=== PATIENT | male | born 1950 | race Hispanic/Latino ===

== ENCOUNTER → 2019-02-06 | Outpatient (CLI) | payer OTHER | END | disposition home or self-care (01) | LOC: SHCH 11:20 | PROVIDERS: ATTEND Internal Medicine Cardiovascular Disease | DX: I70.0 Atherosclerosis of aorta (principal); I71.4 Abdominal aortic aneurysm, without rupture | CPT/HCPCS: 93978 ==

== ENCOUNTER → 2019-03-19 | Outpatient (CLI) | payer OTHER ==
[2019-03-19 09:28] LABS: CREATININE 0.9 mg/dL (0.5-1.5)
== END | disposition home or self-care (01) ==
LOC: LAB 08:36
PROVIDERS: ATTEND Internal Medicine Cardiovascular Disease
DX: I71.4 Abdominal aortic aneurysm, without rupture (principal)
CPT/HCPCS: 36415; 82565; 84520

== ENCOUNTER → 2019-03-20 | Outpatient (CLI) | payer OTHER ==
[~2019-03-20] MED LIST: IOHEXOL 350 MG/ML 100ML INFUS..BTL IV ONE
== END | disposition home or self-care (01) ==
LOC: RAH 07:43
PROVIDERS: ATTEND Internal Medicine Cardiovascular Disease
DX: I70.0 Atherosclerosis of aorta (principal); N40.0 Benign prostatic hyperplasia without lower urinary tract symptoms; Z94.4 Liver transplant status; Z90.49 Acquired absence of other specified parts of digestive tract
CPT/HCPCS: 74174; Q9967

== ENCOUNTER → 2021-02-14 | Outpatient (CLI) | payer MEDICARE | END | disposition home or self-care (01) | LOC: SLP 20:28 | PROVIDERS: ATTEND Internal Medicine | DX: G47.33 Obstructive sleep apnea (adult) (pediatric) (principal) | CPT/HCPCS: 95810 ==

== ENCOUNTER → 2021-02-16 | Outpatient (CLI) | payer MEDICARE | END | disposition home or self-care (01) | LOC: SLP 20:22 | PROVIDERS: ATTEND Internal Medicine | DX: G47.33 Obstructive sleep apnea (adult) (pediatric) (principal) | CPT/HCPCS: 95811 ==

== ENCOUNTER → 2021-05-20 | Outpatient (CLI) | payer MEDICARE ==
[2021-05-20 16:15] LABS: BASOPHILS % (AUTO) 0.2 % (0.0-5.0); EOSINOPHILS % (AUTO) 3.2 % (0.0-8.0); HEMATOCRIT 35.3 % (42-54); LYMPHOCYTES % (AUTO) 39.3 % (21.0-51.0); MEAN CORPUSCULAR HEMOGLOBIN 34.5 pg (27.0-33.0); MEAN CORPUSCULAR HGB CONC 33.4 g/dL (32.0-36.0); MEAN CORPUSCULAR VOLUME 103.2 fL (79-99); MONOCYTES % (AUTO) 5.2 % (3.0-13.0); NEUTROPHILS % (AUTO) 51.9 % (40.0-77.0); PLATELET COUNT (AUTO) 174 K/uL (130-400); RED BLOOD CELL COUNT(AUTO) 3.42 MIL/uL (4.50-6.20); RED CELL DISTRIBUTION WIDTH 15.4 % (11.0-15.5); WHITE BLOOD COUNT (AUTO) 4.4 K/uL (4.8-10.8)
[2021-05-20 16:37] LABS: ALBUMIN 3.6 g/dL (3.5-5.0); BILIRUBIN,TOTAL 0.7 mg/dL (0.2-1.0); CREATININE 1.2 mg/dL (0.5-1.5); POTASSIUM 3.9 mmol/L (3.5-5.1)
== END | disposition home or self-care (01) ==
LOC: RAH 14:10
PROVIDERS: ATTEND Surgery Surgical Oncology
DX: Z01.818 Encounter for other preprocedural examination (principal); C49.A3 Gastrointestinal stromal tumor of small intestine; I45.19 Other right bundle-branch block
CPT/HCPCS: 36415; 71046; 80053; 85025; 93005

== ENCOUNTER → 2021-06-18 | Outpatient (CLI) | payer MEDICARE ==
[2021-06-18 15:09] LABS: BASOPHILS % (AUTO) 0.3 % (0.0-5.0); EOSINOPHILS % (AUTO) 1.9 % (0.0-8.0); HEMATOCRIT 32.8 % (42-54); LYMPHOCYTES % (AUTO) 27.9 % (21.0-51.0); MEAN CORPUSCULAR HEMOGLOBIN 34.6 pg (27.0-33.0); MEAN CORPUSCULAR HGB CONC 32.9 g/dL (32.0-36.0); MEAN CORPUSCULAR VOLUME 105.1 fL (79-99); MONOCYTES % (AUTO) 3.1 % (3.0-13.0); NEUTROPHILS % (AUTO) 66.5 % (40.0-77.0); PLATELET COUNT (AUTO) 222 K/uL (130-400); RED BLOOD CELL COUNT(AUTO) 3.12 MIL/uL (4.50-6.20); RED CELL DISTRIBUTION WIDTH 14.7 % (11.0-15.5); WHITE BLOOD COUNT (AUTO) 3.2 K/uL (4.8-10.8)
[2021-06-18 16:36] LABS: BILIRUBIN,TOTAL 0.7 mg/dL (0.2-1.0); CREATININE 1.1 mg/dL (0.5-1.5); POTASSIUM 4.6 mmol/L (3.5-5.1); THYROID STIMULATING HORMONE 0.01 uIU/mL (0.36-3.74); TOTAL PROTEIN, SERUM 6.6 g/dL (6.0-8.3)
[2021-06-18 16:46] LABS: ALBUMIN 3.3 g/dL (3.5-5.0)
== END | disposition home or self-care (01) ==
LOC: LAB 14:08
PROVIDERS: ATTEND Internal Medicine
DX: C49.A3 Gastrointestinal stromal tumor of small intestine (principal); I10 Essential (primary) hypertension
CPT/HCPCS: 36415; 80053; 84439; 84443; 85025

== ENCOUNTER → 2022-01-05 | Outpatient (CLI) | payer MEDICARE | END | disposition home or self-care (01) | LOC: RAH 07:31 | PROVIDERS: ATTEND Physician Assistant Surgical | DX: Z48.23 Encounter for aftercare following liver transplant (principal); N28.1 Cyst of kidney, acquired; Z94.4 Liver transplant status; Z92.25 Personal history of immunosuppression therapy; Z79.899 Other long term (current) drug therapy; Z90.49 Acquired absence of other specified parts of digestive tract | CPT/HCPCS: 76700; 93975 ==

== ENCOUNTER → 2023-04-12 | Outpatient (CLI) | payer MEDICARE ==
[~2023-04-12] MED LIST changes: +GADOTERATE MEGLUMINE 10 MMOL/20 ML VIAL IV ONE; -IOHEXOL 350 MG/ML 100ML INFUS..BTL IV ONE
== END | disposition home or self-care (01) ==
LOC: RAH 14:33
PROVIDERS: ATTEND Family Medicine
DX: S46.011A Strain of muscle(s) and tendon(s) of the rotator cuff of right shoulder, initial encounter (principal); M25.811 Other specified joint disorders, right shoulder; W19.XXXA Unspecified fall, initial encounter; Y93.89 Activity, other specified; Y92.89 Other specified places as the place of occurrence of the external cause; Y99.8 Other external cause status
CPT/HCPCS: 73223; A9575

== ENCOUNTER 2024-05-22 17:38 | Emergency (ER) | payer MEDICARE ==
[~2024-05-22] VITALS: Ht 177.8 cm; Wt 102.1 kg
[~2024-05-22 17:38] MED LIST changes: +AMLO-257 PO; +APIX5TAB PO; +FINA5TAB41 PO; -GADOTERATE MEGLUMINE 10 MMOL/20 ML VIAL IV ONE; +LEVO25CA4 PO; +LISI5TAB21 PO; +PANT40TA54 PO; +SUNI50CA PO; +TAMS-1 PO; +TRACOLIMUS PO
[2024-05-22 18:10] LABS: BASOPHILS # (AUTO) 0.04 K/uL (0.00-0.20); BASOPHILS % (AUTO) 0.5 % (0.0-5.0); EOSINOPHILS # (AUTO) 0.41 K/uL (0.00-0.70); HEMATOCRIT 35.8 % (42-54); IMMATURE GRANULOCYTE ABSOLUTE 0.02 K/uL (0-1); LYMPHOCYTES # (AUTO) 4.3 K/uL (1.0-4.8); LYMPHOCYTES % (AUTO) 52.1 % (21.0-51.0); MEAN CORPUSCULAR HEMOGLOBIN 33.9 pg (27.0-33.0); MEAN CORPUSCULAR VOLUME 102.9 fL (79-99); MONOCYTES # (AUTO) 0.2 K/uL (0.1-1.0); MONOCYTES % (AUTO) 2.6 % (3.0-13.0); NEUTROPHILS # (AUTO) 3.2 K/uL (1.8-7.7); NEUTROPHILS % (AUTO) 39.6 % (40.0-77.0); PLATELET COUNT (AUTO) 203 K/uL (130-400); RED BLOOD CELL COUNT(AUTO) 3.48 MIL/uL (4.50-6.20); RED CELL DISTRIBUTION WIDTH 17.5 % (11.0-15.5); WHITE BLOOD COUNT (AUTO) 8.2 K/uL (4.8-10.8)
[2024-05-22 18:30] LABS: CREATININE 1.4 mg/dL (0.5-1.3); POTASSIUM 3.1 mmol/L (3.5-5.1)
[2024-05-22 18:39] LABS: ALBUMIN 3.3 g/dL (3.5-5.0); BILIRUBIN,TOTAL 0.7 mg/dL (0.2-1.0); TOTAL PROTEIN, SERUM 6.3 g/dL (6.0-8.3)
[2024-05-22 20:28] LABS: APPEARANCE,URINE CLEAR (CLEAR); BILIRUBIN,URINE NEGATIVE (NEGATIVE); COLOR,URINE YELLOW (YELLOW); GLUCOSE, URINE (UA) NEGATIVE (NEGATIVE); KETONES,URINE NEGATIVE (NEGATIVE); LEUKOCYTE ESTERASE ,URINE 250 Leu/uL (NEGATIVE); NITRATE,URINE NEGATIVE (NEGATIVE); OCCULT BLOOD,URINE NEGATIVE (NEGATIVE); PROTEIN,URINE 30 mg/dL (NEGATIVE); UROBILINOGEN,URINE 0.2 mg/dL (0.2-1.0)
[2024-05-22 20:37] LABS: ADD UA MICROSCOPIC YES
[2024-05-22] MEDS: ONDANSETRON 4MG INJ IVP ONE (20:37)
[2024-05-22] MEDS: POTASSIUM BICARB/CIT AC 25 MEQ TABLET.EFF PO ONE (20:38)
[2024-05-22] MEDS: 0.9%NACL 1000ML 1,000 ML IV ONE (20:38)
[2024-05-22 20:41] LABS: MUCUS,URINE RARE LPF (None Seen); SQUAMOUS EPITHELIAL CELL,UR RARE /HPF (0-2)
[2024-05-22] MEDS ORDERED: ONDA-243 PO (21:28)
[2024-05-22] MEDS ORDERED: FAMO-136 PO (21:28)
[2024-05-22] MEDS ORDERED: SULF1TAB42 PO (21:32)
[2024-05-22 21:52] VITALS: BP 152/76; PULSE 73; RESP 18; O2SAT 100
[2024-05-22] MEDS: CEFTRIAXONE 1G VIAL IVPB ONE (21:56)
== END 2024-05-22 22:40 | disposition home or self-care (01) ==
LOC: EDH 17:38
DX: E87.6 Hypokalemia (principal); R11.2 Nausea with vomiting, unspecified; K52.9 Noninfective gastroenteritis and colitis, unspecified; N39.0 Urinary tract infection, site not specified; R41.82 Altered mental status, unspecified; I10 Essential (primary) hypertension; Z79.899 Other long term (current) drug therapy; Z90.89 Acquired absence of other organs; Z98.890 Other specified postprocedural states
CPT/HCPCS: 99285; 96365; 70450; 71045; 96361; 96375; 84484; 80053; 83880; 83690; 85025; 87086; 81001; 36415; 93005; J7030; J0696; J2405

== ENCOUNTER → 2024-09-27 | Outpatient (CLI) | payer MEDICARE ==
[~2024-09-27] MED LIST changes: +FAMO-136 PO; +ONDA-243 PO; +SULF1TAB42 PO
--- NOTE | 2024-09-27 15:53 | HMCIMG ---
MR BRAIN WO CON HISTORY: Headaches COMPARISON: None TECHNIQUE: MRI of the brain was performed utilizing multiple pulse sequences in axial, coronal and sagittal planes. Patient was not given contrast through intravenous route. FINDINGS: The ventricles and extraventricular CSF spaces are dilated consistent with cerebral atrophy. Nonspecific white matter changes are seen. There is no midline shift, mass effect or herniation. No subacute hemorrhage is seen. No MR evidence of acute infarct is seen in the diffusion weighted images. Cerebellar tonsils are in normal position. No evidence of mucoperiosteal thickening is seen of the visualized paranasal sinuses. No MR evidence of a mass lesion is seen in this noncontrast study. There is minimal mastoid effusion bilaterally. IMPRESSION: 1. No MR evidence of acute infarct is seen in the diffusion weighted images. Atrophy with white matter changes.
== END | disposition home or self-care (01) ==
LOC: RAH 14:30
PROVIDERS: ATTEND Family Medicine
DX: G31.9 Degenerative disease of nervous system, unspecified (principal); R51.9 Headache, unspecified; R90.82 White matter disease, unspecified
CPT/HCPCS: 70551

== ENCOUNTER 2024-11-19 18:12 | Emergency (ER) | payer MEDICARE ==
[~2024-11-19] VITALS: Ht 177.8 cm; Wt 90.7 kg
--- NOTE | 2024-11-19 18:27 | ERN ---
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 Additionally he struck right temporoparietal area of his head and was days. No nausea vomiting no blood thinners no trauma alert criteria. He is ambulatory to the triage room, last tetanus shot is unknown. States he is not a diabetic. Patient is also complaining of cervical spine pain. C-collar placed patient neurovascular CMS intact to all extremities post placement. AFTER A LEFT TRIAGE ROOM PATIENT ADMITTED TO TRIAGE NURSE THAT HE WAS ON ELIQUIS, TRAUMA ALERT WAS ACTIVATED AND EXAMINED PATIENT. I WE WILL CONTINUE PATIENT'S CARE COLLABORATING WITH HER. Allergies: Coded Allergies: No Known Allergies (Unverified Allergy, Unknown, 04/11/24) Home Meds Active Scripts Sulfamethoxazole/Trimethoprim (Bactrim Ds Tablet) 800 Mg-160 Mg Tablet, 1 TAB PO BID for 7 Days, #14 TAB 0 Refills Prov:DEIDRA BOWMAN 05/22/24 Famotidine (Pepcid) 20 Mg Tablet, 20 MG PO DAILY for 7 Days, #7 TAB Prov:DEIDRA BOWMAN 05/22/24 Ondansetron (Ondansetron Odt) 4 Mg Tab.rapdis, 4 MG PO BID for 7 Days, #14 TAB Prov:DEIDRA BOWMAN 05/22/24 Apixaban (Eliquis) 5 Mg Tablet, 5 MG PO DAILY, #30 TAB Prov:SAMARA LOBO 04/16/24 Reported Medications [Tracolimus] No Conflict Check, 2 MG PO BID 04/12/24 Levothyroxine Sodium (Levothyroxine) 25 Mcg Capsule, 25 MCG PO DAILY, CAP 04/12/24 Pantoprazole Sodium (Pantoprazole Sodium) 40 Mg Tablet.dr 40 MG PO DAILYBKFST, TAB 04/12/24 Sunitinib Malate (Sunitinib Malate) 50 Mg Capsule, 50 MG PO DAILY, CAP takes it daily for one week and not the following week. starts on tuesdayu tuesday. 04/12/24 Lisinopril (Lisinopril) 5 Mg Tablet, 5 MG PO DAILYBKFST, TAB 04/12/24 Finasteride (Finasteride) 5 Mg Tablet, 5 MG PO DAILY, TAB 04/12/24 Tamsulosin HCl (Flomax) 0.4 Mg Cap.er.24h, 0.4 MG PO DAILY, CAPSULE. 04/12/24 Amlodipine Besylate (Amlodipine Besylate) 5 Mg Tablet, 5 MG PO DAILY, TAB 04/12/24 Past Medical History Past Medical History: A-Fib, High Cholesterol, Heart Disease, Hypertension, Other Additional Past Medical Hx: HX OF NEUROFIBROMATOSIS Surgical History: Tonsillectomy, Other Surgical History Other: LIVER TRANSPLANT (2018) RN Note Reviewed/Agreed w/PFSH: Yes Review of System Dictation CONSTITUTIONAL: Negative except for HPI HEAD/FACE: Negative except for HPI right temporoparietal tenderness EENT: Negative except for HPI RESPIRATORY: Negative except for HPI GASTROINTESTINAL/ABDOMINAL: Negative except for HPI GENITOURINARY: Negative except for HPI MUSCULOSKELETAL: Negative except for HPI right knee and bilateral elbow abrasions, skin tears INTEGUMENTARY: Negative except for HPI NEUROLOGICAL/PSYCH: Negative except for HPI right temporoparietal headache HEMATOLOGIC/LYMPHATIC: Negative except for HPI All Systems Negative, Except as noted above. 13 point review of systems assessed and all negative except for above. Initial Vital Sign VS Vital Signs Date Time Temp Pulse Resp B/P (MAP) Pulse Ox O2 Delivery O2 Flow Rate FiO2 11/19/24 18:25 97.9 94 16 141/71 99 Room Air 0 Physical Exam Dictation Vital Signs reviewed General Appearance: Alert, oriented x 3, moderate acute distress, well developed, nourished. Head and Face: Scalp contusion to right temporoparietal area. Eyes: PERRL, pink conjunctivas, eyelid no trauma, anterior chamber with arcus s enilis. No neumann or raccoon sign Ears: Pinnas intact and no signs of trauma or erythema ear canals clear and no discharge TM no erythema no hemotympanum Nose: No discharge, no bleeding. Oropharynx: Mouth normal, tongue pink, pharynx clear,no erythema, tonsils no exudates, no abscesses noted, mucous membrane moist Neck: Supple, non-tender, no thyromegaly, no masses, no JVD, no bruits Breast:Deferred Chest:No tenderness, no crepitus, no paradoxical movement, no retractions Lungs:Clear, well-ventilated, symmetric, no rales, no wheezing, no rhonchi, no stridor, good breath sounds bilaterally Heart: Regular rate, regular rhythm, no murmur, no gallops Vascular: no peripheral edema, Abdomen: Soft, positive bowel sounds, nondistended, no guarding, nontender, no rebound, no masses no hepatomegaly, no splenomegaly, no Malone's sign, no hernias. Rectal: Deferred Genital: Deferred Neurological: Normal speech, motor function intact, sensory function intact Musculoskeletal: Neck nontender, full range of motion, back nontender, full range of motion, Extremities: Bilateral elbow and right anterior knee pain tenderness. Fully ambulatory and full range of motion. Skin: Color pink, skin tears multiple to bilateral elbows, none are repairable. In additionally has a an abrasion to the right anterior knee not repairable. Lymphatic: Deferred IVF Sepsis Management BMI >30kg/m2?: Yes Results (Laboratory/Radiology) Laboratory/Radiology CT CERVICAL SPINE WITHOUT CONTRAST INDICATION: Midline cervical spine pain after fall TECHNIQUE: Contiguous axial computed tomography imaging using 2 mm slice thickness through the cervical spine. Reconstructions in the sagittal and coronal planes. CT was performed with one or more of the following dose reduction techniques: Automated exposure control, adjustment of the mA and/or kV according to patient size, or use of iterative reconstruction technique. COMPARISON: None. FINDINGS: Straightening of the normal lordosis may be related to overlying muscle spasm, underlying degenerative joint disease and/or patient positioning. Vertebral bodies are normal stature without evidence for compression deformity or fracture. No evidence for subluxation. Multilevel mild to moderate cervical spondylosis. The craniocervical junction appears normal. The atlantoaxial articulation is within normal limits. The dens is intact. Trace calcific plaque along both common carotid arterial bulb encarnacion. IMPRESSION: No evidence for fracture or subluxation. [facility]IE[facility] INDICATION: Pain COMPARISON: None FINDINGS: AP, lateral, and oblique views. No acute fracture or dislocation identified. Mild tricompartmental right knee osteoarthropathy. Mild tibiofibular joint osteoarthropathy. No significant joint effusion is present. Mild calcific plaque along the outflow and runoff arterial encarnacion. IMPRESSION: No evidence for fracture or dislocation. FINDINGS: Scattered and coalescent subcortical and periventricular white matter low attenuating areas likely represent residual of chronic small vessel arteriopathy and/or remote vascular insult. Generalized mild cerebral cortical atrophy is present.. No evidence for abnormal extra-axial fluid collections or masses. The ventricles and sulci are normal in size and configuration. No evidence for intracranial parenchymal, epidural, or subdural hemorrhage, mass effect or midline shift. The matias-white matter differentiation is well preserved. No secondary evidence to suggest acute ischemia. Mild calcific plaque is present along the encarnacion of the cavernous segments of both internal carotid arteries. The brainstem and cerebellum appear normal. The visualized orbits appear unremarkable. The visible paranasal sinuses and mastoid air cells are clear. The calvarium appears normal. IMPRESSION: Chronic white matter ischemic changes, mild brain atrophy, and arteriosclerotic disease as described, without acute component. RIGHT ELBOW RADIOGRAPHS - 3 VIEWS INDICATION: Pain COMPARISON: None FINDINGS: AP, lateral, and oblique views. No acute fracture or subluxation identified. No significant joint effusion is present. No radiopaque foreign body noted. IMPRESSION: No evidence for fracture or dislocation. FT ELBOW RADIOGRAPHS - 3 VIEWS INDICATION: Pain COMPARISON: None FINDINGS: AP, lateral, and oblique views. No fracture or dislocation identified. No significant joint effusion is present. No radiopaque foreign body noted. IMPRESSION: No evidence for fracture or dislocation. Labs Reviewed?: Yes ED Course ED Course Orders Procedure Category Date Status Time Ct Head/Brain W/O CT 11/19/24 Resulted Contrast 18:23 Elbow Comp 3+Vws Lt RAD 11/19/24 Resulted 18:23 Elbow Comp 3+Vws Rt RAD 11/19/24 Resulted 18:23 Knee 3vws Rt RAD 11/19/24 Resulted 18:23 Acetaminophen 500mg PHA 11/19/24 Complete Tab (Tylenol 500mg T 18:30 Neomy PHA 11/19/24 Complete Sulf/Bacitra/Polymyxin 18:30 Tetanus,Diphtheria PHA 11/19/24 Complete Tox [Adult] (Diphther 18:30 Ct Cervical Spine W/O CT 11/19/24 Resulted Contrast 18:31 Current Medications Medications (Trade) Dose Ordered Sig/Timbo Route PRN Reason Start Time Stop Time Status Last Admin Dose Admin Acetaminophen (TYLenol 500MG TAB) 1,000 mg ONCE ONCE PO 11/19/24 18:30 11/19/24 18:31 DC Neomycin/ Polymyxin/ Bacitracin (Triple Antibiotic Ointment) 1 appl ONCE ONCE TP 11/19/24 18:30 11/19/24 18:31 DC Tetanus/ Diphtheria Toxoids Adsorbed (DiphthERIA-teTANUS TOXOID [ADULT]/ DECAVAC) 0.5 ml ONCE ONCE IM 11/19/24 18:30 11/19/24 18:31 DC Vital Signs Date Time Temp Pulse Resp B/P (MAP) Pulse Ox O2 Delivery O2 Flow Rate FiO2 11/19/24 18:25 97.9 94 16 141/71 99 Room Air 0 2034, PATIENT ALL LABS AND X-RAYS NEGATIVE DISCHARGED HOME AFTER CERVICAL COLLAR REMOVED, NEUROVASCULAR CMS INTACT TO ALL EXTREMITIES POST REMOVAL. Medical Decision Making MDM MEDICAL DISCHARGE MAKING BASED ON X-RAYS OF ALL PAINFUL AR TO INCLUDE TO INCLUDE C-SPINE, HEAD, BILATERAL ELBOWS AND RIGHT KNEE. TETANUS WAS UPDATED PATIENT DISCHARGED HOME NEUROLOGICALLY INTACT WITH ANTIBIOTICS AND BACTROBAN TOLD TO SEE HIS PRIMARY CARE DOCTOR DX & DISP Disposition: Discharge Departure Condition: Stable Referrals: SADNRO BOWMAN MD (PCP) Time of Disposition: 20:36 I have reviewed the case, and I agree with, Diagnosis and Plan VENKAT ROSARIO GRANULATOR OPERATOR Nov 19, 2024 18:27
--- NOTE | 2024-11-19 19:00 | NUR ---
PATIENT BACK FROM CT SCAN. FAMILY AT BEDSIDE
--- NOTE | 2024-11-19 19:09 | HMCIMG ---
CT HEAD WITHOUT CONTRAST INDICATION: Right parietotemporal tenderness after fall TECHNIQUE: Noncontrast axial helical CT images from the vertex through the skull base using 5 mm slice thickness without contrast material. Coronal and sagittal reconstructions were also included. Dose reduction techniques was used using integrated, automated and adaptive dose reduction exposure control. CT was performed with one or more of the following dose reduction techniques: Automated exposure control, adjustment of the mA and/or kV according to patient size, or use of iterative reconstruction technique. COMPARISON: None FINDINGS: Scattered and coalescent subcortical and periventricular white matter low attenuating areas likely represent residual of chronic small vessel arteriopathy and/or remote vascular insult. Generalized mild cerebral cortical atrophy is present.. No evidence for abnormal extra-axial fluid collections or masses. The ventricles and sulci are normal in size and configuration. No evidence for intracranial parenchymal, epidural, or subdural hemorrhage, mass effect or midline shift. The matias-white matter differentiation is well preserved. No secondary evidence to suggest acute ischemia. Mild calcific plaque is present along the encarnacion of the cavernous segments of both internal carotid arteries. The brainstem and cerebellum appear normal. The visualized orbits appear unremarkable. The visible paranasal sinuses and mastoid air cells are clear. The calvarium appears normal. IMPRESSION: Chronic white matter ischemic changes, mild brain atrophy, and arteriosclerotic disease as described, without acute component.
--- NOTE | 2024-11-19 19:11 | HMCIMG ---
CT CERVICAL SPINE WITHOUT CONTRAST INDICATION: Midline cervical spine pain after fall TECHNIQUE: Contiguous axial computed tomography imaging using 2 mm slice thickness through the cervical spine. Reconstructions in the sagittal and coronal planes. CT was performed with one or more of the following dose reduction techniques: Automated exposure control, adjustment of the mA and/or kV according to patient size, or use of iterative reconstruction technique. COMPARISON: None. FINDINGS: Straightening of the normal lordosis may be related to overlying muscle spasm, underlying degenerative joint disease and/or patient positioning. Vertebral bodies are normal stature without evidence for compression deformity or fracture. No evidence for subluxation. Multilevel mild to moderate cervical spondylosis. The craniocervical junction appears normal. The atlantoaxial articulation is within normal limits. The dens is intact. Trace calcific plaque along both common carotid arterial bulb encarnacion. IMPRESSION: No evidence for fracture or subluxation.
--- NOTE | 2024-11-19 19:21 | HMCIMG ---
RIGHT ELBOW RADIOGRAPHS - 3 VIEWS INDICATION: Pain COMPARISON: None FINDINGS: AP, lateral, and oblique views. No acute fracture or subluxation identified. No significant joint effusion is present. No radiopaque foreign body noted. IMPRESSION: No evidence for fracture or dislocation.
--- NOTE | 2024-11-19 19:21 | HMCIMG ---
LEFT ELBOW RADIOGRAPHS - 3 VIEWS INDICATION: Pain COMPARISON: None FINDINGS: AP, lateral, and oblique views. No fracture or dislocation identified. No significant joint effusion is present. No radiopaque foreign body noted. IMPRESSION: No evidence for fracture or dislocation.
--- NOTE | 2024-11-19 19:22 | HMCIMG ---
RIGHT KNEE RADIOGRAPHS - 3 VIEWS INDICATION: Pain COMPARISON: None FINDINGS: AP, lateral, and oblique views. No acute fracture or dislocation identified. Mild tricompartmental right knee osteoarthropathy. Mild tibiofibular joint osteoarthropathy. No significant joint effusion is present. Mild calcific plaque along the outflow and runoff arterial encarnacion. IMPRESSION: No evidence for fracture or dislocation.
[2024-11-19] MEDS: acetaMINOPHEN 500 MG TABLET PO ONE (20:39)
[2024-11-19] MEDS: NEOMY SULF/BACITRA/POLYMYXIN B 1 EACH PACKET TP ONE (20:39)
[2024-11-19] MEDS: teTANUS/diphthERIA TOXOID [ADULT] 0.5 ML VIAL IM ONE (20:39)
--- NOTE | 2024-11-19 20:41 | NUR ---
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 C-COLLAR REMOVED AT THIS TIME.
[2024-11-19] MEDS ORDERED: CLIN-141 PO (20:46)
[2024-11-19] MEDS ORDERED: MUPI22O TP (20:46)
[2024-11-19 21:54] VITALS: BP 130/81; PULSE 76; RESP 16; TEMP 98.1; O2SAT 100
== END 2024-11-19 22:04 | disposition home or self-care (01) ==
LOC: EDH 18:12
DX: S80.212A Abrasion, left knee, initial encounter (principal); S80.211A Abrasion, right knee, initial encounter; E78.00 Pure hypercholesterolemia, unspecified; I10 Essential (primary) hypertension; I48.91 Unspecified atrial fibrillation; Z79.01 Long term (current) use of anticoagulants; Z79.890 Hormone replacement therapy; Z90.89 Acquired absence of other organs; Z94.4 Liver transplant status; X58.XXXA Exposure to other specified factors, initial encounter; Y93.89 Activity, other specified; Y92.89 Other specified places as the place of occurrence of the external cause; Y99.8 Other external cause status
CPT/HCPCS: 70450; 72125; 73080; 73562; 90471; 90714; 99285